=== PATIENT | male | born 1970 | race Two or more races ===

== ENCOUNTER 2018-02-11 15:48 | Emergency (ER) | payer OTHER ==
[~2018-02-11] VITALS: Ht 162.6 cm; Wt 83.9 kg
[~2018-02-11 15:48] MED LIST: AMOX1TAB12 PO; MYCOSTATIN100000 UNI PO; PREDNISONE20 MG; TUSSI PRES-B L120 M1 PO
== END 2018-02-11 22:04 | disposition home or self-care (01) ==
LOC: ER 15:48
DX: B34.9 Viral infection, unspecified (principal)

== ENCOUNTER 2022-08-15 14:04 | Emergency (ER) | payer OTHER ==
[~2022-08-15] VITALS: Ht 167.6 cm; Wt 81.6 kg
[2022-08-15] MEDS ORDERED: DICLOFENAC POTA50 MG PO (16:26)
[2022-08-15] MEDS ORDERED: CYCLOBENZAPRINE10 MG PO (16:26)
== END 2022-08-15 16:38 | disposition home or self-care (01) ==
LOC: ER 14:04
DX: S23.3XXA Sprain of ligaments of thoracic spine, initial encounter (principal); X58.XXXA Exposure to other specified factors, initial encounter; Y93.89 Activity, other specified; Y92.89 Other specified places as the place of occurrence of the external cause; Y99.8 Other external cause status; M62.838 Other muscle spasm

== ENCOUNTER 2024-12-15 12:34 | Emergency (ER) | payer OTHER ==
[~2024-12-15] VITALS: Ht 165.1 cm; Wt 83.9 kg
[~2024-12-15 12:34] MED LIST changes: +CYCLOBENZAPRINE10 MG PO; +DICLOFENAC POTA50 MG PO
[2024-12-15] MEDS ORDERED: GUAIFENESIN 200 MG/10 ML BLIST.PACK PO ONE ×2 (14:45→15:29)
[2024-12-15] MEDS ORDERED: METHYLPREDNISOLONE SOD SUCC 125 MG VIAL IV ONE (14:45)
[2024-12-15] MEDS ORDERED: SODIUM CHLORIDE FOR INHALATION 1 VIAL.NEB IH ONE ×2 (14:45→20:21)
[2024-12-15] MEDS ORDERED: 0.9 % SODIUM CHLORIDE 1,000 ML IV ONE (14:45)
[2024-12-15] MEDS ORDERED: ACETAMINOPHEN 500 MG GEL..CAP PO ONE ×2 (14:45→15:28)
[2024-12-15] MEDS ORDERED: METHYLPREDNISOLONE SOD SUCC 125 MG VIAL ONE (15:29)
[2024-12-15 15:57] LABS: BASO % 0.3 % (0.1-1.2); EOS # 0.00 (0.04-0.54); EOS % 0.0 % (0.7-7.0); LYMPH # 0.91 (1.18-3.74); LYMPH % 12.7 % (19.3-53.1); MEAN PLATELET VOLUME 10.90 fl (9.4-12.4); MONO # 0.25 (0.24-0.82); MONO % 3.5 % (4.7-12.5); NEUT # 5.99 (1.56-6.13); NEUT % 83.2 % (34.0-71.1); RED CELL DISTRIBUTION WIDTH 12.4 % (11.6-14.4)
[2024-12-15] MEDS ORDERED: AZITHROMYCIN 500 MG VIAL IV ONE ×2 (16:30→19:21)
[2024-12-15 16:33] LABS: ALT/SGPT 36 U/L (12-78); AST/SGOT 30 U/L (15-37); BILIRUBIN TOTAL 0.35 mg/dL (0.3-1.2); BUN CREA RATIO 13 (7.0-25.0); CREATININE SERUM 1.17 mg/dL (0.70-1.30); GFR 65.21; GLOBULINA 4.1 G/DL (2.4-3.5); GLUCOSE FASTING 156 mg/dL (65-100); OSMOLALITY SERUM 287 MOSM/KG (275-295)
[2024-12-15 17:04] LABS: COVID-19 AG NEGATIVE (NEGATIVE)
[2024-12-15 18:08] LABS: URINE APPEARANCE Clear; URINE BILIRRUBIN Negative (NEGATIVE); URINE BLOOD Large; URINE COLOR Yellow; URINE GLUCOSE Negative (NEGATIVE); URINE KETONE Trace (NEGATIVE); URINE LEUKOCYTE Negative; URINE NITRATE Negative; URINE UROBILINOGEN 0.2 E.U./dl
[2024-12-15 18:18] LABS: URINE BACTERIA 46.7 uL (0.0-1933); URINE EPITHELIAL CELLS 3.5 uL (0.0-38.8); URINE RBC 274.2 uL (0.0-20.8); URINE WBC 2.9 uL (0.0-23.2)
[2024-12-15 18:45] LABS: URINE CAST 0.58 uL (0.0-1.40); URINE PROTEIN 100 (NEGATIVE)
[2024-12-15] MEDS ORDERED: VANACOF DM LIQ240 ML PO (19:40)
[2024-12-15] MEDS ORDERED: ZITHROMAX500 MG PO (19:40)
== END 2024-12-15 22:19 | disposition home or self-care (01) ==
LOC: ER 12:34
DX: J06.9 Acute upper respiratory infection, unspecified (principal); J45.909 Unspecified asthma, uncomplicated; H91.8X9 Other specified hearing loss, unspecified ear; Z20.822 Contact with and (suspected) exposure to COVID-19